=== PATIENT | female | born 1935 | race Caucasian/White ===

== ENCOUNTER 2018-12-11 00:13 | Inpatient (IN) | payer MEDICARE, BC ==
[~2018-12-11] VITALS: Ht 160 cm; Wt 68.2 kg
--- NOTE | ~2018-12-11 | DS ---
PATIENT:JUAN HERNANDEZ :39 MEDICAL RECORD: [id number] DISCHARGE SUMMARY ADMISSION DATE: 12/11/18 DISCHARGE DATE: 12/28/18 IDENTIFYING DATA: The patient is 83 years old and she was admitted to the hospital on a voluntary basis. HISTORY OF PRESENT ILLNESS: The patient was referred to us by the Emergency Room in [place]. Apparently, she had been both combative and aggressive with her family. There was a history of a stroke and also some confusion that had recently worsened. Her family or some members of her family were living with her, but unable to manage her behavior. The patient was quite agitated, but denied that she would seek to harm herself or others. HOSPITAL COURSE: The patient was admitted to the hospital and evaluated from both a medical, psychological, and social standpoint. She was treated with both mood stabilizing and memory enhancing medications. She had some behavior outbursts that were managed either pharmacologically or with behavioral interventions. She was clearly not able to live independently and it was my recommendation that she have 23-nruv-l-day supervision. There was an [place] [facility] [place], then the plan changed that she was going to live with her daughter and then the plan changed a third and final time and at that time, the patient was going to return home and family members were going to resume taking rotating shifts being with her and supervising her. DISCHARGE DIAGNOSES: AXIS I: Vascular dementia. AXIS II: None. AXIS III: Status post stroke, atrial fibrillation, hypertension, hyperlipidemia, osteoarthritis. AXIS IV: Moderate. AXIS V: Global assessment of functioning is 35. ASSESSMENT: At the time of discharge, the patient was in good behavioral control and had no active thoughts of harming herself or others. She was tolerating her medications reasonably well. She is to have a followup appointment with her primary care physician. TRANSINT:[id number] Voice Confirmation ID: [id number] DOCUMENT ID: [id number] JONI CEBALLOS MD CC: [id number] DICTATION DATE: 12/30/18 1539 STEREO EQUIPMENT INSTALLER: 12/31/18 0136 DIS IN 12/28/18 [address] [id number] [place] [address]
[2018-12-11] MEDS ORDERED: LASIX80 MG PO (00:35)
[2018-12-11] MEDS ORDERED: POTASSIUM CHLO20 MEQ PO (00:35)
[2018-12-11] MEDS ORDERED: XARELTO20 MG PO (00:36)
[2018-12-11] MEDS ORDERED: OXYBUTYNIN CHLOR5 MG PO (00:36)
[2018-12-11] MEDS ORDERED: VIBRAMYCIN50 MG PO (00:37)
[2018-12-11] MEDS ORDERED: LEXAPRO5 MG PO (00:40)
[2018-12-11] MEDS ORDERED: LOPRESSOR25 MG PO (00:40)
[2018-12-11] MEDS ORDERED: LIPITOR40 MG PO (00:41)
--- NOTE | 2018-12-11 01:59 | NUR ---
PATIENT ARRIVED AT 00:[address] [facility] VIA EMS, CODE WORD IS INTERIANO, CODE STATUS IS DNR, VSS T 97.9, BP 111'75, P 78, R 20 O2 IS 97%, DAUGHTER OLEKSANDR KING GAVE TELEPHONE CONSENT FOR ADMITION, PATIENT HAS A HX OF STROKE APRIL 2018 AND HAS HAD BEHAVIOR PROBLEMS SENCE THEN, COMBATIVENESS AND AGGRESSIVE BEHAVIOR FOR THE LAST TWO MONTHS, WILL CONTINUE TO MONITOR.
[2018-12-11 02:29] VITALS: BP 111/75; BMI 26.6
[2018-12-11 07:10] LABS: BASOPHILS 0.2 % (0-2); HEMATOCRIT 41.4 % (36.0-48.0); HEMOGLOBIN 13.8 g/dL (12-16); IMMATURE GRANULOCYTES 0.2 % (0-5); LYMPHOCYTES 25.1 % (15-50); MCH 30.1 pg (26.0-34.0); MCHC 33.3 g/dL (31.0-37.0); MCV 90.2 fL (80.0-100.0); MEAN PLATELET VOLUME 11.7 fL (7.4-10.4); MONOCYTES 10.9 % (2-11); NEUTROPHILS 59.6 % (40-80); PLATELET COUNT 169 10x3/uL (130-400); RBC 4.59 10x6/uL (4.00-5.40); RDW 14.8 % (11.5-14.5); WBC 6.1 10x3/uL (4.8-10.8)
[2018-12-11 07:17] LABS: ALBUMIN 2.2 g/dL (3.4-5.0); ALKALINE PHOSPHATASE 76 U/L (46-116); ALT (SGPT) 16 U/L (10-68); BILIRUBIN - TOTAL 0.58 mg/dL (0.2-1.3); CALC OSMOLALITY 284 mosm/kg (275-300); CALCIUM 8.3 mg/dL (8.5-10.1); CARBON DIOXIDE 29.1 mmol/L (21.0-32.0); CHLORIDE - SERUM 104 mmol/L (98-107); CHOL - HDL RATIO 2.4 ratio (2.3-4.1); CHOLESTEROL, TOTAL 84 mg/dL (0-200); CREATININE - SERUM 0.7 mg/dL (0.6-1.3); GLUCOSE 118 mg/dL (74-106); HDL CHOLESTEROL 35 mg/dL (32-96); LDL CHOLESTEROL 38 mg/dL (0-100); LDL-HDL RATIO 1.1 ratio (1.5-3.5); POTASSIUM - SERUM 3.3 mmol/L (3.5-5.1); PROTEIN - SERUM 5.1 g/dL (6.4-8.2); SODIUM 142 mmol/L (136-145); THYROID STIMULATING HORMONE 0.35 uIU/mL (0.36-3.74); TRIGLYCERIDE 58 mg/dL (30-200); UREA NITROGEN 16 mg/dL (7-18); eGFR NON AFRICAN AMERICAN 85 mL/min (90-120)
[2018-12-11 08:01] VITALS: BP 114/68
[2018-12-11 09:12] LABS: APPEARANCE CLEAR (CLEAR); BILIRUBIN NEGATIVE (NEGATIVE); COLOR YELLOW (YELLOW); GLUCOSE NEGATIVE (NEGATIVE); KETONE NEGATIVE (NEGATIVE); NITRITE NEGATIVE (NEGATIVE); PROTEIN NEGATIVE (NEGATIVE); UROBILINOGEN NORMAL (NORMAL)
[2018-12-11 09:27] VITALS: BMI 26.5
--- NOTE | 2018-12-11 10:19 | NUR ---
B) The patient is awake and she knows her name, she knows she is in [place], she knows it is November, she says the president is "Dante brooks." She is quite talkative and says "My daughter just wants me here and she wants what little bit of money I have and everything I have?" She says "Why am I here anyway?" Explain to her that she is having some memory issues. She says "No, that's some story that my daughter cooked up." She has presented confused as she has asked the same question over and over. She says "Can I use the phone to call my Dr.?" Explained to her that she is in the hospital and we have two Dr.'s that will see her. She ambulates with a walker independently. I) Provide prescribed meds, redirect to appropriate unit milieu. R) The patient is wandering around and she asks anyone that comes to the unit to get her out of here. She has not shown any aggression this am, but she has poor insight into her situation. P) Continue POC.
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
--- NOTE | 2018-12-11 21:36 | NUR ---
PATIENT IS CONFUSED AND EASILY AGITATED, COMPLIANT WITH MEDS, NO ADVERSE REACTION NOTED. WILL FOLLOW POC
[2018-12-12 04:45] VITALS: BP 118/67
--- NOTE | 2018-12-12 07:30 | NUR ---
REC'D PT IN HALLWAY WITH PEERS. ALERT WITH CONFUSION NOTED. CALM AND COOPERATIVE WITH ASSESSMENT. NO AGGRESSION NOTED. DEMANDING AT TIMES. PT WANTS TO CALL A CAB TO COME GET HER. REDIRECT AND REORIENT NEEDED. PRESCRIBED MEDS PROVIDED. MED COMPLIANT. FALL PRECAUTIONS IN PLACE. WILL CONTINUE TO MONITOR Q 15 MINUTES FOR SAFETY. WILL CPOC.
[2018-12-12 08:18] VITALS: BP 115/65
--- NOTE | 2018-12-12 12:21 | PSY ---
PATIENT NAME:JUAN HERNANDEZ MEDICAL RECORD: [id number] : 39 LOCATION:[facility] ADMISSION DATE: 12/11/18 ACCOUNT: [id number] PSYCHIATRIC EVALUATION DATE OF EVALUATION: 12/11/18 IDENTIFYING DATA: The patient is 83 years old and she is admitted to the hospital on a voluntary basis. CHIEF COMPLAINT: Aggression. HISTORY OF PRESENT ILLNESS: The patient is referred to us by the Emergency Room from a hospital in [place]. Apparently, she has been combative and aggressive with her family. She also has a history of stroke and some confusion. Her grandson lives with her and they have been unable to control her behavior. The patient denies that she has been aggressive. She says that they have been mistreating her, but when asked if they have hurt her, attacked her, touched her or abused her in some way, she denies it, but then goes on to say that they are not nice to her, but she cannot give me any specifics that are meaningful. She denies that she would seek to harm herself or others. PAST MEDICAL HISTORY: Significant for stroke with some mild left hemiplegia. She also has hypothyroidism, atrial fibrillation, chronic back pain, cataracts. PAST PSYCHIATRIC HISTORY: Negative for psychiatric disease and at this point she has not been diagnosed with a dementing illness as far as I know, but she has been started on an antidepressant. FAMILY HISTORY: Noncontributory by her account. ALLERGIES: SULFUR AND PENICILLIN. CURRENT MEDICATIONS: Include Lipitor, Lexapro, Lasix, potassium, Ditropan, Vibramycin and Xarelto. SOCIAL HISTORY: The patient is . She lives with her grandson. She has 4 children, 3 sons and a daughter, and they seem to be involved with her care. MENTAL STATUS EXAMINATION: The patient is alert and oriented to person and place, but not to time or situation. Her mood is angry. Her affect is constricted. Thought processes are disorganized. Memory, concentration, and abstraction abilities are moderately impaired and she denies any active intent to harm herself or others as well as active psychotic symptoms. ASSETS: Supportive family members. LIABILITIES: Limited insight. DIAGNOSTIC IMPRESSION: AXIS I: Vascular dementia. AXIS II: None. AXIS III: Status post stroke, atrial fibrillation, hypertension, hyperlipidemia and osteoarthritis. AXIS IV: Moderate. AXIS V: Global assessment of functioning 30. PLAN: At this time, the patient is admitted to the hospital for a comprehensive medical, psychological, and social evaluation. She will be treated with both mood stabilizing and memory enhancing medications. Her long-term prognosis is guarded. TRANSINT:[id number] Voice Confirmation ID: [id number] DOCUMENT ID: [id number] JONI CEBALLOS MD at 1221 CC: [id number] DICTATION DATE: 12/11/18 1329 SECURITY SYSTEM TECHNICIAN: 12/11/18 1347 ADM IN [place] [id number] [place] [id number]
--- NOTE | 2018-12-12 12:44 | PN ---
PATIENT:JUAN HERNANDEZ MEDICAL RECORD: [id number] LOCATION:[facility] ADMISSION DATE: 12/11/18 PROGRESS NOTE DATE OF SERVICE: 12/12/2018 SUBJECTIVE: The patient's case was discussed with staff. She has no new complaint. OBJECTIVE: The patient is confused. She does not recall meeting me yesterday. She says that her being here is a big mistake and she wants her family to come and take her home. ASSESSMENT: No change in diagnoses. PLAN: Current medicines have been reviewed. The family will be contacted regarding more information and what their wishes are. TRANSINT:[id number] Voice Confirmation ID: [id number] DOCUMENT ID: [id number] JONI CEBALLOS MD at 1244 CC: [id number] DICTATION DATE: 12/12/18 1236 FRUIT PACKER: 12/12/18 1241 ADM IN [place] [id number] [place] [address]
[2018-12-12 21:16] VITALS: BP 130/65
--- NOTE | 2018-12-12 22:29 | NUR ---
PATIENT IS CONFUSED, HAS TO BE REDIRECTED TO HER ROOM SEVERAL TIMES, LABILE, COMPLIANT WITH MEDS, NO ADVERSE REACTION NOTED. WILL FOLLOW POC
[2018-12-13 08:00] VITALS: BP 124/83
--- NOTE | 2018-12-13 10:00 | NUR ---
AWAKE AND ALERT,WITH CONFUSION NOTED. SHE HAS BEEN VERY TALKATIVE WITH STAFF. BUT A LITTLE BIT GRUMPY. COMPLIANT WITH TAKING MEDICATIONS. CALM AND COOPERATIVE WITH CARE AND ASSESSMENT. WILL CONTINUE PLAN OF CARE.
[2018-12-13 10:18] VITALS: Ht 160 cm; Wt 68.2 kg
[2018-12-13 12:13] LABS: FOLATE (FOLIC ACID) - SERUM 9.7 ng/mL (>3.0); VITAMIN D 25 HYDROXY 32.4 ng/mL (30.0-100.0)
[2018-12-13 20:06] VITALS: BP 111/72
--- NOTE | 2018-12-14 00:09 | NUR ---
RECEIVED IN DAYROOM. SITTING ON COUCH SOCIALIZING WITH PEERS. CALM AND COOPERATIVE WITH CARE AND ASSESSMENT. NO SIGNS OF AGGRESSION. REDIRECT AND REORIENT NEEDED. RESTING IN BED WITH EYES CLOSED AT THIS TIME. CONTINUE PLAN OF CARE.
[2018-12-14 07:33] LABS: RAPID PLASMA REAGIN Non Reactive (Non Reactive)
[2018-12-14 07:48] VITALS: BP 103/65
--- NOTE | 2018-12-14 10:47 | NUR ---
Nutrition Follow Up: Chart reviewed Diet: Regular PO Intake: 33% meal avg No BM since admit Labs reviewed Meds noted including Lasix Rec continue current diet. Will order Ensure BID. RD following.
--- NOTE | 2018-12-14 15:21 | PN ---
PATIENT:JUAN HERNANDEZ MEDICAL RECORD: [id number] LOCATION:[facility] ADMISSION DATE: 12/11/18 PROGRESS NOTE DATE OF SERVICE: 12/13/2018 SUBJECTIVE: The patient's case was discussed with staff. She has no new complaint. OBJECTIVE: The patient denies intent to harm herself or others. She is reporting depressive symptoms, but when asked about depression denies it. She has pretty limited insight about her situation. ASSESSMENT: No change in diagnoses. PLAN: The patient's Lexapro will be increased to 10 mg daily. She has limited insight about her situation. Her prognosis is guarded. TRANSINT:[id number] Voice Confirmation ID: [id number] DOCUMENT ID: [id number] JONI CEBALLOS MD at 1521 CC: [id number] DICTATION DATE: 12/13/18 1614 INFORMATION SERVICES MANAGER: 12/13/18 1712 ADM IN [place] [id number] [place] [address]
--- NOTE | 2018-12-14 15:24 | NUR ---
RECEIVED IN HALLWAY AT NURSES STATION. SHE AMBULATES WITH A WALKER. NO AGGRESSION NOTED. CALM AND COOPERAATIVE WITH CARE AND ASSESSMENT. REDIRECT AND REORIENT NEEDED. CONTINUE PLAN OF CARE.
[2018-12-14 19:34] VITALS: BP 128/68
--- NOTE | 2018-12-14 21:34 | NUR ---
RECEIVED IN DINING ROOM. SITTING IN CHAIR AND SOCIALIZING WITH PEERS. CALM AND COOPERATIVE WITH CARE AND ASSESSMENT. NO SIGNS OF AGGRESSION. REDIRECT AND REORIENT NEEDED. CONTINUES TO SIT IN DINING ROOM AND SOCIALIZE AT THIS TIME. CONTINUE PLAN OF CARE.
[2018-12-15 09:44] VITALS: BP 102/61
--- NOTE | 2018-12-15 15:56 | PN ---
PATIENT:JUAN HERNANDEZ MEDICAL RECORD: [id number] LOCATION:[facility] ADMISSION DATE: 12/11/18 PROGRESS NOTE DATE OF SERVICE: 12/14/2018 SUBJECTIVE: The patient's case was discussed with staff. She has no new complaint. OBJECTIVE: The patient denies intent to harm herself or others. She generally tolerates her medicines well. Eye contact is fair. ASSESSMENT: No change in diagnoses. PLAN: Current medicines have been reviewed and will be maintained. Long-term prognosis is guarded. TRANSINT:[id number] Voice Confirmation ID: [id number] DOCUMENT ID: [id number] JONI CEBALLOS MD at 1556 CC: [id number] DICTATION DATE: 12/14/18 1531 MED AIDE: 12/14/18 2214 ADM IN [place] [id number] [place] [address]
[2018-12-15 22:07] VITALS: BP 100/56
--- NOTE | 2018-12-15 22:36 | NUR ---
RECEIVED IN PATIENT ROOM. RESTING IN BED WITH EYES OPEN. CALM AND COOPERATIVE WITH CARE AND ASSESSMENT. NO SIGNS OF AGGRESSION. REDIRECT AND REORIENT NEEDED. RESTING IN BED WITH EYES CLOSED AT THIS TIME. CONTINUE PLAN OF CARE.
[2018-12-16 09:24] VITALS: BP 94/51
--- NOTE | 2018-12-16 14:00 | PN ---
PATIENT:JUAN HERNANDEZ MEDICAL RECORD: [id number] LOCATION:[facility] ADMISSION DATE: 12/11/18 PROGRESS NOTE DATE OF SERVICE: 12/15/2018 SUBJECTIVE: The patient's case was discussed with staff. She has no new complaint. OBJECTIVE: The patient is in good behavioral control with limited insight about her condition. She does tolerate her medicines well. ASSESSMENT: No change in diagnoses. PLAN: Current medicines and therapies have been reviewed, both will be maintained. Long-term prognosis is guarded. TRANSINT:[id number] Voice Confirmation ID: [id number] DOCUMENT ID: [id number] JONI CEBALLOS MD at 1400 CC: [id number] DICTATION DATE: 12/15/18 1616 HANDY WORKER: 12/15/189 ADM IN [place] [address] [place] [address]
--- NOTE | 2018-12-16 18:00 | NUR ---
IS ORIENTED X 3 BUT HAS SOME CONFUSION.TALKS A LOT ABOUT DAUGHTER.STATES DAUGHTER IS TRYING TI GET EVERYTHING SHE OWNS AND DOESN'T WANT TO SHARE IT WITH ANYONE WHEN SHE DIES.STATES DAUGHTR AND SON N LAW HAVE GAMBLING PROBLEM AND LOST ONE HOUSE BECAUSE OF GAMBLING.IS COMPLIANT WITH STAFFAND MEDS.ATTEMPTS TO BE HELPFUL WITH PEERS.LOWER EXTREMITIES HAVE 3+ PITTING EDEMA.WILL CONTINUE WITH PLAN OF CARE,MONITOR FOR CHANGES AND SAFETY.
[2018-12-16 20:36] VITALS: BP 122/60
--- NOTE | 2018-12-17 01:36 | NUR ---
B) Patient is alert and oriented to person, place and time, calm and cooperative with care and assessment, I) Administered scheduled medications as ordered, R) Mediation compliant, resting quietly in her bed, P) Continue plan of care.
[2018-12-17 09:20] VITALS: BP 137/80
--- NOTE | 2018-12-17 10:46 | NUR ---
B) The patient is awake and pleasant, she says she does not feel well. She ate her breakfast and she is compliant with her medications, she uses a walker to help her ambulate. She has not shown aggression today. I) Provide prescribed meds. R) The patient is resting on the couch at this time. P) Continue POC.
--- NOTE | 2018-12-17 12:30 | NUR ---
The patient requested pickle juice she says that makes her feel better. Did get her a small container of pickle juice from the kitchen. She is slowly drinking it.
--- NOTE | 2018-12-17 14:36 | NUR ---
The patients daughter called to check on her. She suggested she get flash and mary with peaches and an ensure.
--- NOTE | 2018-12-17 17:15 | PN ---
PATIENT:JUAN HERNANDEZ MEDICAL RECORD: [id number] LOCATION:[facility] ADMISSION DATE: 12/11/18 PROGRESS NOTE DATE OF SERVICE: 12/16/2018 SUBJECTIVE: The patient's case was discussed with staff. She has no new complaint. OBJECTIVE: The patient is tolerating her medications well. She has limited insight about her condition. ASSESSMENT: No change in diagnoses. PLAN: The patient will be treated with Namenda at a dose of 5 mg twice daily. Namenda is being used to treat her underlying cognitive impairment. She will be monitored for clinical changes associated with its use. Discharge planning involves her going home, but living with her daughter. TRANSINT:[id number] Voice Confirmation ID: [id number] DOCUMENT ID: [id number] JNOI CEBALLOS MD at 1715 CC: [id number] DICTATION DATE: 12/16/18 1420 STEEL PLATE CAULKER: 12/16/18 1843 ADM IN [place] [id number] [place] [address]
[2018-12-17 19:31] VITALS: BP 120/60
--- NOTE | 2018-12-17 19:42 | NUR ---
PATIENT STAYING TO HERSELF THIS EVENING, LITTLE AGITATED, STATES, "I'M READY FOR BED". WALKS WITH WALKER, COMPLIANT WITH MEDS. NO ADVERSE SIDE EFFECTS NOTED. WILL FOLLOW POC
--- NOTE | 2018-12-18 08:00 | NUR ---
B) The patient is alert and oriented x 3, she has some confusion at times, she has not been aggressive today. She ambulates with a walker. I) Provide prescribed meds. R) The patient is compliant with meds and unit milieu. P) Continue POC.
[2018-12-18 08:12] VITALS: BP 107/69
--- NOTE | 2018-12-18 12:03 | PN ---
PATIENT:JUAN HERNANDEZ MEDICAL RECORD: [id number] LOCATION:[facility] ADMISSION DATE: 12/11/18 PROGRESS NOTE DATE OF SERVICE: 12/17/2018 SUBJECTIVE: The patient's case was discussed with staff. She has no new complaint. OBJECTIVE: The patient is taking her medications. She is still not eating very well. She has not been observed to have significant or any psychotic symptoms. She said some things that could be interpreted as confused or possibly delusional such as when she was looking for a male relative, not sure if it was her , but I do not think it was and this was several days ago. Interestingly though, her daughter visited yesterday and said that the patient was talking to her about this man who is outside her window at the intermediate, which when I have asked her about it she has looked genuinely perplexed as though she did not know what I was talking about. ASSESSMENT: No change in diagnoses. PLAN: Current medicines have been reviewed and will be maintained. I do not have an explanation for the difference between what the daughter reports and what we have observed. I am not suggesting at all that it is not true, accurate or legitimate, I just do not have an explanation. Further information and monitoring are indicated. At this point, I am not wanting to start her on an antipsychotic because of the relative risk and benefit and I am simply not seeing the symptoms that would be the target symptoms. TRANSINT:[id number] Voice Confirmation ID: [id number] DOCUMENT ID: [id number] JONI CEBALLOS MD at 1203 CC: [id number] DICTATION DATE: 12/17/18 1729 HEAD SCREEN WORKER: 12/17/18 2153 ADM IN [facility] [address] [place] [id number]
[2018-12-18 20:22] VITALS: BP 114/58
[2018-12-19 07:00] VITALS: BP 108/62
--- NOTE | 2018-12-19 18:16 | NUR ---
IS ORIENTED X 3 BUT HAS SOME CONFUSION.IS FIXATED ON DAUGHTER AND HOW SHE HAS WRONGED HER.IS COMPLIANT WITH STAFF AND MEDS.WILL CONTINUE WITH PLAN OF CARE,MONITOR FOR CHANGES AND SAFETY.
[2018-12-19 19:26] VITALS: BP 103/82
--- NOTE | 2018-12-19 21:56 | NUR ---
PATIENT IS PLEASANT, AAOX3, HOWEVER SHE SPEAKS NEGATIVELY OF HER DAUGHTER OFTEN AND FEELS IF SHE DOESN'T WANT HER AROUND AND SHE DOES NOT LISTEN TO REASON, COMPLIANT WITH MEDS, NO ADVERSE REACTION NOTED. WILL FOLLOW POC
[2018-12-20 07:00] VITALS: BP 117/79
--- NOTE | 2018-12-20 07:30 | NUR ---
PT IS AAOX3. PT IS CALM AND COOPERATIVE WITH ASSESSSMENT. NO AGGRESSION NOTED. PT IS VERY TALKATIVE THIS AM. PRESCRIBED MEDS PROVIDED. MED COMPLIANT. REDIRECT AND REORIENT NEEDED. PT. USES WALKER TO AMBULATE. FALL PRECAUTIONS IN PLACE. WILL CONTINUE TO MONITOR Q 15 MINUTES FOR SAFETY. WILL CPOC.
--- NOTE | 2018-12-20 14:45 | PN ---
PATIENT:JUAN HERNANDEZ MEDICAL RECORD: [id number] LOCATION:[facility] ADMISSION DATE: 12/11/18 PROGRESS NOTE DATE OF SERVICE: 12/18/2018 SUBJECTIVE: The patient's case was discussed with staff. She has no new complaint. OBJECTIVE: The patient is in good behavioral control. She has limited insight about her condition. She tolerates her medicines well. ASSESSMENT: No change in diagnoses. PLAN: Supportive and educational interventions were made. Long-term prognosis is guarded. TRANSINT:[id number] Voice Confirmation ID: [id number] DOCUMENT ID: [id number] JONI CEBALLOS MD at 1445 CC: [id number] DICTATION DATE: 12/18/18 1313 FLATBED DRIVER: 12/19/18 0009 ADM IN [place] [id number]
--- NOTE | 2018-12-20 14:45 | PN ---
PATIENT:JUAN HERNANDEZ MEDICAL RECORD: [id number] LOCATION:[facility] ADMISSION DATE: 12/11/18 PROGRESS NOTE DATE OF SERVICE: 12/19/2018 SUBJECTIVE: The patient's case was discussed with staff. She has no new complaint. OBJECTIVE: The patient denies intent to harm herself or others. She does tolerate her medicines well. ASSESSMENT: No change in diagnoses. PLAN: Brief supportive and educational interventions were made. The patient is not eating adequately, but is eating some. When asked about this, she is evasive. TRANSINT:[id number] Voice Confirmation ID: [id number] DOCUMENT ID: [id number] JONI CEBALLOS MD at 1445 CC: [id number] DICTATION DATE: 12/19/18 1232 HVAC TECHNICIAN: 12/19/18 1513 ADM IN [place] [id number] [place] [address]
[2018-12-20 21:16] VITALS: BP 122/56
[2018-12-21 07:00] VITALS: BP 128/85
--- NOTE | 2018-12-21 07:30 | NUR ---
REC'D PT IN HALLWAY WITH PEERS. AWAKE AND ALERT. PT IS DEMANDING AT TIMES. CALM AND COOPERATIVE WITH ASSESSMENT. REDIRECT AND REORIENT NEEDED. PRESCRIBED MEDS PROVIDED. MED COMPLIANT. FALL PRECAUTIONS IN PLACE. NO AGGRESSION NOTED. WILL CONTINUE TO MONITOR Q 15 MINUTES FOR SAFETY. WILL CPOC.
--- NOTE | 2018-12-21 13:36 | NUR ---
Pt is on a regular diet with 10-40% intake of meals Last BM 3/3 Pt is drinking some Ensure Ensure ordered BID Pt is on Megace 10lb weight loss since admit based on available weights Pt reports that chicken today was hard to eat and she likes sweets the best Will modify diet order to help increase po intake RD following
--- NOTE | 2018-12-21 15:38 | PN ---
PATIENT:JUAN HERNANDEZ MEDICAL RECORD: [id number] LOCATION:[facility] ADMISSION DATE: 12/11/18 PROGRESS NOTE DATE OF SERVICE: 12/20/2018 SUBJECTIVE: The patient's case was discussed with staff. She has no new complaint. OBJECTIVE: The patient is in good behavioral control. She has very limited insight about her condition. She has a depressed mood, but no thoughts of self-harm. She is not eating adequately, but is also taking an appetite stimulant that hopefully will start to show some beneficial effects. ASSESSMENT: No change in diagnoses. PLAN: The patient's Lexapro will be increased to 20 mg daily. Her long-term prognosis is guarded. Supportive and educational interventions were made. TRANSINT:[id number] Voice Confirmation ID: [id number] DOCUMENT ID: [id number] JONI CEBALLOS MD at 1538 CC: [id number] DICTATION DATE: 12/20/18 1455 DIRECTOR WRITING: 12/20/18 1855 ADM IN [place] [id number] [place] [id number]
[2018-12-21 21:34] VITALS: BP 124/64
--- NOTE | 2018-12-21 23:49 | NUR ---
RECEIVED IN PATIENT ROOM. RESTING IN BED WITH EYES OPEN. CALM AND COOPERATIVE WITH CARE AND ASSESSMENT. NO SIGNS OF AGGRESSION. REDRIECT AND REORIENT NEEDED. RESTING IN BED WITH EYES CLOSED AT THIS TIME. CONTINUE PLAN OF CARE.
--- NOTE | 2018-12-22 07:30 | NUR ---
REC'D PT IN HALLWAY WITH PEERS. PT CALM AND COOPERATIVE WITH ASSESSMENT. PT IS DEMANDING AT TIMES WITH STAFF. REDIRECT AND REORIENT NEEDED. PRESCRIBED MEDS PROVIDED. MED COMPLIANT. FALL PRECAUTIONS IN PLACE. WILL CONTINUE TO MONITOR Q 15 MINUTES FOR SAFETY. WILL CPOC.
[2018-12-22 08:23] VITALS: BP 98/60
--- NOTE | 2018-12-22 13:01 | PN ---
PATIENT:JUAN HERNANDEZ MEDICAL RECORD: [id number] LOCATION:[facility] ADMISSION DATE: 12/11/18 PROGRESS NOTE DATE OF SERVICE: 12/21/2018 SUBJECTIVE: The patient's case was discussed with staff. She has no new complaint. OBJECTIVE: The patient is in good behavioral control. She has poor insight about her condition. She generally tolerates her medicines well. ASSESSMENT: No change in diagnoses. PLAN: Brief supportive and educational interventions were made. Long-term prognosis is guarded. TRANSINT:[id number] Voice Confirmation ID: [id number] DOCUMENT ID: [id number] JONI CEBALLOS MD at 1301 CC: [id number] DICTATION DATE: 12/21/18 1612 PARK SERVICES SPECIALIST: 12/21/18 1708 ADM IN [place] [id number] [place] [address]
[2018-12-22 19:50] VITALS: BP 117/68
--- NOTE | 2018-12-23 00:20 | NUR ---
B) Patient ie alert and oriented to person and place, calm and cooperative with care and assessment, I) Administered scheduled medications as ordered, monitored for safety and for needs, R) Mediation compliant, pleasant and friendly, P) Continue plan of care.
--- NOTE | 2018-12-23 13:03 | PN ---
PATIENT:JUAN HERNANDEZ MEDICAL RECORD: [id number] LOCATION:[facility] ADMISSION DATE: 12/11/18 PROGRESS NOTE DATE OF SERVICE: 12/22/2018 SUBJECTIVE: The patient's case was discussed with staff. She has no new complaint. OBJECTIVE: The patient denies intent to harm herself or others. She is tolerating her medications well. ASSESSMENT: No change in diagnoses. PLAN: Current medicines have been reviewed and will be maintained. Long-term prognosis is guarded. She will have her Namenda increased to 10 mg twice daily. TRANSINT:[id number] Voice Confirmation ID: [id number] DOCUMENT ID: [id number] JONI CEBALLOS MD at 1303 CC: [id number] DICTATION DATE: 12/22/18 1511 TIME STUDY OBSERVER: 12/23/18 0008 ADM IN [place] [id number] [place] [address]
--- NOTE | 2018-12-23 16:19 | NUR ---
IS ORIENTED BUT HAS SOME CONFUSION.FIXATED ON DAUGHTER.STATES 'she is not my daughter anymore".IS COMPLIANT WITH STAFF AND MEDS.TALKS WITH PEERS.NO AGGRESSION OBSERVED.WILL CONTINUE WITH PLAN OF CARE,MONITOR FOR CHANGES AND SAFETY.
[2018-12-23 19:56] VITALS: BP 118/76
--- NOTE | 2018-12-24 04:12 | NUR ---
B) Patient is alert and oriented to person and place, calm and cooperative with staff, social with peers, no aggression noted, I) Administered scheduled medications as ordered, monitored for safety and for needs, R) Mediation compliant, pleasnat and friendly P) Continue plan of care.
[2018-12-24 09:48] VITALS: BP 97/76
[2018-12-24 10:37] VITALS: BP 97/76
--- NOTE | 2018-12-24 10:47 | NUR ---
B) The patient is awake and alert this am, she says she felt dizzy when she first woke up. She is able to walk independently with a walker. The patient has not shown any aggressive behaviors, she states "I don't have a senile bone in my body." She is pleasant, she does have some edema noted to her bilateral ankles, but she has her legs elevated at this time. I) Provide prescribed meds. R) The patient is compliant with meds, she is interacting in groups. P) Continue POC.
--- NOTE | 2018-12-24 13:49 | PN ---
PATIENT:RADHA HERNANDEZ MEDICAL RECORD: [id number] LOCATION:[facility] ADMISSION DATE: 12/11/18 PROGRESS NOTE DATE OF SERVICE: 12/23/2018 SUBJECTIVE: The patient's case was discussed with staff. She has no new complaint. OBJECTIVE: The patient has limited insight about her condition. She generally tolerates her medicines well. She has had some ongoing psychotic symptoms and in fact has been hallucinating a cat in her bed. I intend to treat her with a low dose of an antipsychotic medication. Unfortunately, it turns out that her daughter is not going to be able to have Radha move in with her. This is probably for the best since whenever the daughter's name is mentioned Radha becomes angry. She does have limited insight about her condition and at this point, a custodial placement will be sought. TRANSINT:[id number] Voice Confirmation ID: [id number] DOCUMENT ID: [id number] JONI CEBALLOS MD at 1349 CC: [id number] DICTATION DATE: 12/23/18 1540 METER INSTALLER: 12/23/18 1638 ADM IN [place] [id number] [place] [address]
[2018-12-24 14:47] LABS: ALBUMIN 2.7 g/dL (3.4-5.0); ANION GAP 12.6 mmol/L (8-16); BILIRUBIN - TOTAL 0.43 mg/dL (0.2-1.3); CALCIUM 8.7 mg/dL (8.5-10.1); CARBON DIOXIDE 30.3 mmol/L (21.0-32.0); CREATININE - SERUM 0.9 mg/dL (0.6-1.3); POTASSIUM - SERUM 3.9 mmol/L (3.5-5.1); PROTEIN - SERUM 6.6 g/dL (6.4-8.2); T4 THYROXIN - FREE 0.82 ng/dL (0.76-1.46); THYROID STIMULATING HORMONE 6.65 uIU/mL (0.36-3.74)
[2018-12-24 15:09] LABS: BASOPHILS 0.1 % (0-2); EOSINOPHILS 4.2 % (0-7); HEMATOCRIT 44.5 % (36.0-48.0); HEMOGLOBIN 14.8 g/dL (12-16); IMMATURE GRANULOCYTES 0.3 % (0-5); LYMPHOCYTES 22.4 % (15-50); MCH 30.2 pg (26.0-34.0); MCHC 33.3 g/dL (31.0-37.0); MCV 90.8 fL (80.0-100.0); MEAN PLATELET VOLUME 11.8 fL (7.4-10.4); MONOCYTES 7.2 % (2-11); NEUTROPHILS 65.8 % (40-80); RDW 14.8 % (11.5-14.5); WBC 7.5 10x3/uL (4.8-10.8)
[2018-12-24 15:10] LABS: PLATELET COUNT 228 10x3/uL (130-400)
[2018-12-24 20:15] VITALS: BP 121/66
--- NOTE | 2018-12-25 05:21 | NUR ---
B) Patient is alert and oriented to person, confused at times, calm and cooperative, I) Adfministered scheduled medications as ordered, monitored for safety and for needs, R) Mediation compliant, sleeping quietly in her bed, P) Continue plan of care.
--- NOTE | 2018-12-25 07:49 | NUR ---
B) The patient is awake and alert, she is oriented x3. She is agitated this am. She has not shown any aggression this am. She ambulates with a walker. I) Provide prescribed meds. R) The patient is compliant with meds and unit milieu. P) Continue POC.
[2018-12-25 08:12] VITALS: BP 116/73
--- NOTE | 2018-12-25 08:39 | PN ---
PATIENT:JUAN HERNANDEZ MEDICAL RECORD: [id number] LOCATION:[facility] ADMISSION DATE: 12/11/18 PROGRESS NOTE DATE OF SERVICE: 12/24/2018 SUBJECTIVE: The patient's case was discussed with staff. She has no new complaint. OBJECTIVE: The patient denies intent to harm herself or others. She is tolerating her medicines well. Eye contact is fair. I anticipate the patient can be transitioned out of the hospital soon. There has been another change in her discharge plan. She is not going to go the intermediate or to live with her daughter at this time. She is going to go home and her son or sons will live with her. TRANSINT:[id number] Voice Confirmation ID: [id number] DOCUMENT ID: [id number] JONI CEBALLOS MD at 0839 CC: [id number] DICTATION DATE: 12/24/18 1528 LEAD SOFTWARE ARCHITECT: 12/24/182049 ADM IN [place] [id number] [place] [address]
[2018-12-25 19:57] VITALS: BP 153/83
--- NOTE | 2018-12-26 03:57 | NUR ---
B) Patient is alert and oriented X 3, calm and cooperative , ambulates with walker for short distances, I) Administered scheduled medications as ordered, monitored for safety, assisted with needs, R) Mediation compliant, no aggression noted, pleasant and friendly, P) Continue plan of care.
[2018-12-26 08:00] VITALS: BP 104/56
--- NOTE | 2018-12-26 08:07 | NUR ---
B) The patient is awakened to get an EKG, she tolerated it well. The patient is calm and cooperative. She ambulates with a walker independently. She has poor insight into her situation. She has not shown any aggression today. I) Provide prescribed meds. R) The patient is compliant with meds and unit milieu. P) Continue POC.
--- NOTE | 2018-12-26 11:00 | NUR ---
REPORT RECEIVED AND CARE ASSUMED, SITTING IN CHAIR WATCHING A MOVIE.
--- NOTE | 2018-12-26 11:37 | PN ---
PATIENT:JUAN HERNANDEZ MEDICAL RECORD: [id number] [facility] AD[facility] DATE: 12/11/18 PROGRESS NOTE DATE OF SERVICE: 12/25/2018 SUBJECTIVE: The patient's case was discussed with staff. She has no new complaint. OBJECTIVE: The patient is in good behavioral control with limited insight about her condition. She does tolerate her medicines well. ASSESSMENT: No change in diagnoses. PLAN: Supportive and educational interventions were made. Long-term prognosis is guarded. TRANSINT:[id number] Voice Confirmation ID: [id number] DOCUMENT ID: [id number] JONI CEBALLOS MD at 1137 CC: [id number] DICTATION DATE: 12/25/18 0841 MEDICAL OFFICE ADMINISTRATOR: 12/25/18 0850 ADM IN [place] [id number]
[2018-12-26 19:28] VITALS: BP 168/95
--- NOTE | 2018-12-26 22:04 | NUR ---
PATIENT IS AWAKE AND ALERT,PASSIVE AND CALM, ABLE TO MAKE NEEDS KNOWN, NO ADVERSE REACTION NOTED, WILL FOLLOW POC
--- NOTE | 2018-12-27 09:00 | NUR ---
RECEIVED IN HALLWAY WITH PEERS. AWAKE AND ALERT X3, CALM AND COOPERATIVE WITH CARE AND ASSESSMENT. PROVIDE PRESCRIBED MEDS, COMPLIANT WITH TAKING MEDS CRUSHED IN APPLESAUCE. FALL PRECAUTIONS IN PLACE. WILL CONTINUE PLAN OF CARE.
--- NOTE | 2018-12-27 15:38 | NUR ---
SW SPOKE WITH PT'S DTR, HECTOR, TO DISCUSS DISCHARGE PLANS FOR TOMORROW. ANDREA REPORTED FOLLOW UP APPOINTMENT AND MEDICATIONS BEING SENT TO [facility]. HECTOR VERBALIZED UNDERSTANDING OF DISCHARGE PLANS.
--- NOTE | 2018-12-27 15:58 | PN ---
PATIENT:JUAN HERNANDEZ MEDICAL RECORD: [id number] LOCATION:[facility] ADMISSION DATE: 12/11/18 PROGRESS NOTE DATE OF SERVICE: 12/25/2018 SUBJECTIVE: The patient's case was discussed with staff. She does report some sedation, but does not appear to be sedated objectively. She denies that she would seek to harm herself. She has clear and very strong evidence of cognitive impairment. She is eating marginally well. ASSESSMENT: 1. Vascular dementia. 2. Major depression. PLAN: Current medications have been reviewed and will be maintained. I think her long-term prognosis is guarded. TRANSINT:[id number] Voice Confirmation ID: [id number] DOCUMENT ID: [id number] JONI CEBALLOS MD at 1558 CC: [id number] DICTATION DATE: 12/26/18 1145 BOLT SORTER: 12/26/18 1206 ADM IN [place] [id number] [place] [id number]
[2018-12-27] MEDS ORDERED: LOPRESSOR25 MG PO (16:23)
[2018-12-27] MEDS ORDERED: ACETAMINOPHEN325 MG PO (16:23)
[2018-12-27] MEDS ORDERED: NAMENDA5 MG PO (16:24)
[2018-12-27] MEDS ORDERED: LEXAPRO20 MG PO (16:24)
[2018-12-27] MEDS ORDERED: VOLTAREN100 GM TOPICAL (16:24)
[2018-12-27] MEDS ORDERED: Senokot-S Tablet PO (16:25)
[2018-12-27] MEDS ORDERED: Mylicon / Gas-X Che PO (16:25)
[2018-12-27] MEDS ORDERED: MEGACE40 MG PO (16:25)
[2018-12-27] MEDS ORDERED: GENTAMICIN 0.3 %5 ML RIGHT EYE (16:25)
[2018-12-27] MEDS ORDERED: ANUSOL-HC 2.5%30 GM TOPICAL (16:26)
[2018-12-27 20:54] VITALS: BP 131/85
--- NOTE | 2018-12-27 21:55 | NUR ---
RECEIVED IN DAYROOM. SITTING IN CHAIR SOCIALIZING WITH PEERS. CALMA DN COOPERATIVE WITH CARE AND ASSESSMENT. NO SIGNS OF AGGRESSION. REDIRECT AND REORIENT NEEDED. GETTING READY FOR BED AT THIS TIME. CONTINUE PLAN OF CARE.
[2018-12-28 08:30] VITALS: BP 131/90
--- NOTE | 2018-12-28 09:59 | NUR ---
Nutrition Follow Up: Chart reviewed Diet: Regular Mech Soft; Ensure BID PO Intake: 56% meal avg BM: 12/24/18 Labs reviewed Meds noted including Megace Rec continue current diet, supplement regimen. Rec continue appetite stimulant. RD following.
--- NOTE | 2018-12-28 10:00 | NUR ---
RECEIVED IN HALLWAY SITTING IN WHEELCHAIR. AWAKE AND ALERT, CALM AND COOPERATIVE WITH CARE AND ASSESSMENT. PROVIDE PRESCRIBED MEDICATIONS. COMPLIANT WITH MEDS, FALL PRECAUTIONS MAINTAINED. WILL CONTINUE PLAN OF CARE.
--- NOTE | 2018-12-28 12:58 | PN ---
PATIENT:JUAN HERNANDEZ MEDICAL RECORD: [id number] LOCATION:[facility] ADMISSION DATE: 12/11/18 PROGRESS NOTE DATE OF SERVICE: 12/27/2018 SUBJECTIVE: The patient's case was discussed with staff. She has no new complaint. OBJECTIVE: The patient is in good behavioral control. She has pretty limited insight about her condition. She is generally tolerating her medicines well. She has not been aggressive. ASSESSMENT: No change in diagnoses. PLAN: The patient will be maintained on current medicines, which I have reviewed. I am going to discharge her tomorrow. That is assuming this level of improvement is maintained. If it is, she will go back to her home and will have her son living with her. TRANSINT:[id number] Voice Confirmation ID: [id number] DOCUMENT ID: [id number] JONI CEBALLOS MD at 1258 CC: [id number] DICTATION DATE: 12/27/18 1622 PARKS AND RECREATION MANAGER: 12/27/18 1853 ADM IN [place] [id number] [place] [id number]
--- NOTE | 2018-12-28 14:30 | NUR ---
DISCHARGE PAPERWORK COMPLETED. BELONGINGS COLLECTED AND SENT WITH PATIENT. LEFT IN CAR WITH DAUGHTER.
== END 2018-12-28 14:30 | disposition home or self-care (01) | DRG 57 ==
LOC: D.PSYCH 00:13
PROVIDERS: Family Medicine; ADMIT Psychiatry & Neurology Psychiatry; ATTEND Psychiatry & Neurology Psychiatry
DX: I69.319 Unspecified symptoms and signs involving cognitive functions following cerebral infarction (principal); F01.51 Vascular dementia, unspecified severity, with behavioral disturbance; I69.354 Hemiplegia and hemiparesis following cerebral infarction affecting left non-dominant side; N39.0 Urinary tract infection, site not specified; I10 Essential (primary) hypertension; E78.5 Hyperlipidemia, unspecified; M19.90 Unspecified osteoarthritis, unspecified site; F32.9 Major depressive disorder, single episode, unspecified; M81.0 Age-related osteoporosis without current pathological fracture; N32.81 Overactive bladder; R06.00 Dyspnea, unspecified; E03.9 Hypothyroidism, unspecified; K59.00 Constipation, unspecified; R42 Dizziness and giddiness; R63.0 Anorexia; Z68.26 Body mass index [BMI] 26.0-26.9, adult; H10.9 Unspecified conjunctivitis